=== PATIENT | male | born 1970 | race Caucasian/White ===

== ENCOUNTER 2021-06-26 20:55 | Emergency (ER) | payer OTHER ==
[2021-06-26 21:07] VITALS: BP 129/91; PULSE 93; RESP 18; TEMP 98.2
[2021-06-26] MEDS ORDERED: FLUORESCEIN STRIPS 1 MG STRIP RIGHT EYE ONE (21:20)
[2021-06-26] MEDS ORDERED: TETRACAINE 0.5% OPHTH (PF) DROPS 4 ML BTL RIGHT EYE STA (21:20)
[2021-06-26] MEDS ORDERED: DIPH,PERTUS(ACELL)TETVAC-LF 0.5 ML VIAL IM ONE (21:21)
[2021-06-26] MEDS ORDERED: CIPROFLOXACIN 0.3% OPHTH SOLN 5 ML BTL RIGHT EYE STA (21:21)
[2021-06-26] MEDS ORDERED: PROPARACAINE 0.5% OPHTH DROPS 15 ML BTL RIGHT EYE STA (21:32)
--- NOTE | 2021-06-26 22:03 | CT ---
EXAMINATION TYPE: CT orbits wo con DATE OF EXAM: 06/26/2021 COMPARISON: None available HISTORY: trauma to right eye TECHNIQUE: Axial CT images of the orbits was obtained without contrast. Coronal and sagittal reformat s were generated and reviewed. CT DLP: 335.8 mGycm Automated exposure control for dose reduction was used. FINDINGS: There is no acute fracture or dislocation. The bilateral globes are grossly intact. The zygomatic arc h, pterygoid plates and mandible is also intact. There is mild mucosal thickening of the ethmoid sinu s. Otherwise paranasal sinuses are adequately aerated. No significant soft tissue abnormality. No radiopaque foreign body or fluid collection. IMPRESSION: NO ACUTE ABNORMALITY.
[2021-06-26] MEDS ORDERED: TROPICAMIDE 1% OPHTH DROPS 2 ML BTL RIGHT EYE STA (22:04)
--- NOTE | 2021-06-26 22:08 | ED ---
Eye Problem HPI - General Chief complaint: ENT Stated complaint: Right eye injury - [facility] Time Seen by Provider: 06/26/21 21:01 Source: patient, EMS Mode of arrival: EMS Limitations: no limitations - History of Present Illness Initial comments: This patient is a 50-year-old man who comes here directly from work where he had an injury to his right eye. The patient states that 3/8 inch diameter spring struck his right eye and cause the injury. The patient states that the vision with his right eye is so blurry that he can only sense light and dark and since movement. He cannot read at all. The patient denies previous ophthalmologic history but does wear reading glasses. Patient not sure when his last tetanus shot was given but feels he probably needs an update. MD chief complaint: eye injury Onset/Timin -: hour(s) Onset Description: sudden Location: right eye Place: work If Injury: direct trauma Eye Symptoms: foreign body sensation, itching, blurry vision Severity: severe If Pain, Quality: other Consistency: constant Associated Symptoms: none Treatments Prior to Arrival: eyepatch - Related Data Patient Tetanus UTD: No Allergies Allergy/AdvReac Type Severity Reaction Status Date / Time No Known Allergies Allergy Verified 06/26/21 21:26 Review of Systems ROS Statement: Those systems with pertinent positive or pertinent negative responses have been documented in the HPI. ROS Other: All systems not noted in ROS Statement are negative. Constitutional: Denies: fever Eyes: Reports: eye pain, vision change Respiratory: Denies: dyspnea Cardiovascular: Denies: chest pain Gastrointestinal: Denies: vomiting Neurological: Denies: headache Hematological/Lymphatic: Denies: easy bleeding Past Medical History Past Medical History: Hyperlipidemia, Hypertension History of Any Multi-Drug Resistant Organisms: None Reported Past Surgical History: No Surgical Hx Reported Smoking Status: Current every day smoker Past Alcohol Use History: Occasional Past Drug Use History: None Reported General Exam General appearance: alert, in no apparent distress Head exam: Present: atraumatic, normocephalic Course Vital Signs 06/26/21 20:57 Temperature 98.2 F Pulse Rate 93 Respiratory 18 Rate Blood Pressure 129/91 O2 Sat by Pulse 95 Oximetry - Reevaluation(s) Reevaluation #1: 06/26/21 22:08 Case is discussed with Dr. Joseph, who will see the patient. Disposition Clinical Impression: Corneal laceration of right eye Disposition: HOME SELF-CARE Condition: Good Instructions (If sedation given, give patient instructions): Corneal Abrasion (ED) Is patient prescribed a controlled substance at d/c from ED?: No Referrals: José Miguel Sears DO [Primary Care Provider] - 1-2 days Emiliano Joseph MD [STAFF PHYSICIAN] - 1-2 days
--- NOTE | 2021-06-27 05:41 | CONS ---
CONSULTATION CHIEF COMPLAINT: Injury to right eye at work. Eye examination: Vision hand movement, right eye, pupils equal and reactive in both eyes, extraocular motility full. Right subconjunctival hemorrhage at medial canthus. No conjunctiva tear. Cornea shows an 8 mm laceration in the center including several layers of the cornea. Jimmy test is negative. Anterior chamber is formed. No hyphema. Retina shows a good red reflex. Difficult to evaluate retinal details due to corneal edema and laceration. Intra-ocular pressure could not be achieved due to gentle corneal laceration. PLAN: Antibiotic Tylox and eye drops were applied. A patch was applied overnight. The patient to be re-evaluated in the morning. CT scan of orbits were normal. The patient may need corneal transplants in the future. Corneal contact lens could be necessary and exam tomorrow. The patient was given a card and to be examined tomorrow at 9:00 am. B-scan is indicated to detect if any retina tear is due to the poor retina exam. Thank you for this consultation. MMODL / IJN: [id number] /
== END 2021-06-26 23:19 | disposition home or self-care (01) ==
LOC: EC 20:55
DX: S05.31XA Ocular laceration without prolapse or loss of intraocular tissue, right eye, initial encounter (principal); Z23 Encounter for immunization; E78.5 Hyperlipidemia, unspecified; I10 Essential (primary) hypertension; F17.200 Nicotine dependence, unspecified, uncomplicated; Z72.89 Other problems related to lifestyle; W22.8XXA Striking against or struck by other objects, initial encounter; Y99.0 Civilian activity done for income or pay
CPT/HCPCS: 70480; 90471; 90715; 99284